=== PATIENT | male | born 1990 | race Caucasian/White ===

== ENCOUNTER 2021-08-07 09:44 | Emergency (ER) | payer MEDICAID ==
[~2021-08-07] VITALS: Ht 172.7 cm; Wt 79.0 kg
[2021-08-07] MEDS ORDERED: IBUPROFEN 600MG TABLET PO ONE (10:30)
[2021-08-07 10:36] VITALS: BP 123/62
[2021-08-07 11:25] LABS: CLARITY URINE CLEAR (CLEAR); COLOR URINE YELLOW (YELLOW); KETONES URINE NEGATIVE (NEGATIVE); LEUKOCYTE ESTERASE URINE NEGATIVE (NEGATIVE); NITRITE URINE NEGATIVE (NEGATIVE); OCCULT BLOOD URINE NEGATIVE (NEGATIVE); PH URINE 7.5 (4.5-8.0); PROTEIN URINE NEGATIVE (NEGATIVE); SPECIFIC GRAVITY URINE 1.021 (1.005-1.030)
== END 2021-08-07 12:11 | disposition home or self-care (01) ==
LOC: ER 10:12
DX: K40.90 Unilateral inguinal hernia, without obstruction or gangrene, not specified as recurrent (principal)
CPT/HCPCS: 74176; 81003; 99284

== ENCOUNTER 2023-08-13 11:22 | Emergency (ER) | payer MEDICAID, OTHER ==
[~2023-08-13] VITALS: Ht 182.9 cm; Wt 70.0 kg
[2023-08-13 12:16] VITALS: BP 114/52; PULSE 83; RESP 18; TEMP 98.6; O2SAT 97
[2023-08-13 12:23] LABS: BASOPHILS % 1.1 % (0.0-2.0); EOSINOPHILS % 0.4 % (0.0-5.0); HEMATOCRIT. 43.4 % (42.0-52.0); HEMOGLOBIN. 14.7 g/dL (14.0-18.0); LYMPHOCYTES % 29.4 % (20.0-50.0); MEAN CORPUSCULAR HEMOGLOBIN 29.9 pg (28.0-32.0); MEAN CORPUSCULAR HGB CONC 33.9 g/dL (31.0-37.0); MEAN CORPUSCULAR VOLUME 88.1 fL (80.0-94.0); MEAN PLATELET VOLUME 9.2 fl (7.4-10.4); MONOCYTES % 5.9 % (2.0-8.0); NEUTROPHILS % 63.2 % (40.0-76.0); PLATELET 259 x1000/uL (130-400); RED BLOOD CELL COUNT 4.92 mill/uL (4.7-6.1); RED CELL DISTRIBUTION WIDTH 12.6 % (11.6-14.6); WHITE BLOOD COUNT 5.1 x1000/uL (4.5-11.0)
[2023-08-13 12:26] LABS: CHLORIDE 104 mEq/L (98-107); POTASSIUM 4.2 mEq/L (3.5-5.1); SODIUM 138 mEq/L (136-145)
[2023-08-13 12:27] LABS: CALCIUM 9.6 mg/dL (8.7-10.4); CARBON DIOXIDE 27 mEq/L (21-32)
[2023-08-13 12:32] LABS: GLUCOSE 96 mg/dL (70-105); UREA NITROGEN BLOOD 14 mg/dL (9-23)
[2023-08-13 12:34] LABS: ALANINE AMINOTRANSFERASE 66 IU/L (10-49); ALBUMIN 4.6 g/dL (3.2-4.8); ASPARTATE AMINOTRANSFERASE 21 IU/L (<34); BILIRUBIN DIRECT 0.3 mg/dL (<=3.0); BILIRUBIN TOTAL 0.8 mg/dL (0.1-1.0); PROTEIN TOTAL 7.6 g/dL (6.0-8.3)
[2023-08-13 13:13] LABS: CLARITY URINE CLEAR (CLEAR); COLOR URINE YELLOW (YELLOW); GLUCOSE URINE NEGATIVE (NEGATIVE); KETONES URINE TRACE (NEGATIVE); LEUKOCYTE ESTERASE URINE NEGATIVE (NEGATIVE); NITRITE URINE NEGATIVE (NEGATIVE); OCCULT BLOOD URINE NEGATIVE (NEGATIVE); PROTEIN URINE TRACE (NEGATIVE); SPECIFIC GRAVITY URINE 1.027 (1.005-1.030)
[2023-08-13 14:02] LABS: MUCUS URINE TRACE /lpf (NONE/TRACE)
[2023-08-13 14:03] LABS: WBC URINE 0-2 /hpf (0-2)
[2023-08-13 14:04] LABS: RBC URINE 0-2 /hpf (0-2); SQUAMOUS EPITHELIAL CELL URINE NONE SEEN /lpf (RARE/1+)
[2023-08-13 14:05] LABS: BACTERIA URINE TRACE
== END 2023-08-13 12:00 | disposition home or self-care (01) ==
LOC: ER 11:22
DX: M79.641 Pain in right hand (principal); Z98.890 Other specified postprocedural states
CPT/HCPCS: 36415; 73130; 80048; 80076; 81003; 85025; 86850; 86900; 99284

== ENCOUNTER 2023-12-30 05:54 | Emergency (ER) | payer OTHER ==
[~2023-12-30] VITALS: Ht 182.9 cm; Wt 77.0 kg
[2023-12-30 05:56] VITALS: O2SAT 100
[2023-12-30 05:58] VITALS: BP 117/72; PULSE 60; RESP 18; TEMP 98.2; O2SAT 100
[2023-12-30] MEDS: KETOROLAC 30MG/ML VIAL IM ONE (06:30)
[2023-12-30] MEDS ORDERED: IBUP-2028 MT (07:40)
== END 2023-12-30 08:32 | disposition home or self-care (01) ==
LOC: ER 05:54
DX: M25.511 Pain in right shoulder (principal)
CPT/HCPCS: 73060; 96372; 99283; J1885; Z7610; A4565